=== PATIENT | male | born 1945 | race Caucasian/White ===

== ENCOUNTER 2018-08-16 10:29 | Outpatient (CLI) | payer MEDICARE ==
[2018-08-16] MEDS ORDERED: ISOVUE-370 76%-LOCM 1 ML ONE (13:59)
--- NOTE | 2018-08-16 14:43 | CT ---
CT OF THE ABDOMEN AND PELVIS WITH IV CONTRAST: INDICATION: Lower abdominal pain with bloating and constipation. COMPARISON: None. FINDINGS: Lung bases are clear. There are calcified granuloma within the spleen. There are tiny hypodensities within the liver suspicious for tiny cysts. The pancreas and adrenal gl ands are unremarkable. There is a 4 mm nonobstructing calculus within the superior pole of the right kidney. No ureteral c alculus or hydronephrosis is evident. There is a mild amount of retained stool within the colon. The prostate is mildly enlarged measuring 5.8 cm. Small and large bowel are of normal caliber. The appendix is not definitively seen; howeve r, no secondary signs for appendicitis. There is scattered degenerative and osteoarthritic change. IMPRESSION: 1. No CT explanation for the patient's low abdominal pain and bloating. 2. Tiny hypodensities within the right hepatic lobe suspicious for tiny cysts. 3. Findings of prior granulomatous disease. 4. Right nephrolithiasis. 5. Mild amount of retained stool. 6. Prostate enlargement. POS: [facility]
== END 2018-08-16 10:30 | disposition home or self-care (01) ==
LOC: BICCT 10:29
PROVIDERS: ATTEND Internal Medicine Gastroenterology
DX: R10.30 Lower abdominal pain, unspecified (principal); R10.10 Upper abdominal pain, unspecified; R14.0 Abdominal distension (gaseous); K59.00 Constipation, unspecified; N20.0 Calculus of kidney; N40.0 Benign prostatic hyperplasia without lower urinary tract symptoms
CPT/HCPCS: 74177

== ENCOUNTER 2022-11-09 07:56 | Day surgery (SDC) | payer MEDICARE ==
[2022-11-07 13:21] VITALS: BMI 26.9
[2022-11-09] MEDS ORDERED: fentaNYL PF 100 MCG/2 ML SYRINGE ONE (09:29)
[2022-11-09] MEDS ORDERED: PROPOFOL 200 MG/20 ML VIAL ONE (09:48)
== END 2022-11-09 10:13 | disposition home or self-care (01) ==
LOC: SDC 07:56
PROVIDERS: ATTEND Internal Medicine Gastroenterology
PROC: 0DB68ZX Excision of Stomach, Via Natural or Artificial Opening Endoscopic, Diagnostic (ICD-10-PCS; principal; 2022-11-09)
PROC: 0DJD8ZZ Inspection of Lower Intestinal Tract, Via Natural or Artificial Opening Endoscopic (ICD-10-PCS; 2022-11-09)
DX: Z12.11 Encounter for screening for malignant neoplasm of colon (principal); K31.9 Disease of stomach and duodenum, unspecified; K29.70 Gastritis, unspecified, without bleeding; K20.90 Esophagitis, unspecified without bleeding; K44.9 Diaphragmatic hernia without obstruction or gangrene; K57.30 Diverticulosis of large intestine without perforation or abscess without bleeding; I48.91 Unspecified atrial fibrillation; I50.9 Heart failure, unspecified; Z86.010 Personal history of colon polyps; Z79.01 Long term (current) use of anticoagulants; Z79.82 Long term (current) use of aspirin; Z79.899 Other long term (current) drug therapy; Z95.1 Presence of aortocoronary bypass graft; Z95.5 Presence of coronary angioplasty implant and graft; Z95.810 Presence of automatic (implantable) cardiac defibrillator
CPT/HCPCS: 43239; G0105; 88305; 88342; J2704